=== PATIENT | male | born 1960 | race Caucasian/White ===

== ENCOUNTER 2019-05-17 19:57 | Emergency (ER) | payer MEDICAID ==
[~2019-05-17] VITALS: Ht 175.3 cm; Wt 74.8 kg
[2019-05-17 20:00] VITALS: BP_SYST 112
--- NOTE | 2019-05-17 20:00 | NUR ---
Patient to ER bed 5 for evaluation. Side rails up.
--- NOTE | 2019-05-17 20:10 | NUR ---
True JAMISON on 5150 hold for DTS/DTO. Pt was found at a [employer] making suicidal statements and threatened patrons of the store. Per law enforcement pt stated he wanted to run into traffic. Hx of psychiatric issues, multiple psychiatric admissions and suicide attempts. States SI with no plan, denies HI, AH, or VH. Denies any CP, SOB, N/V/D, no other chief complaints. Reports alcohol use but denies any other drug use at this time. Will continue to monitor.
--- NOTE | 2019-05-17 20:40 | NUR ---
ER Dr. Coles at bedside examining patient.
[2019-05-17 21:29] LABS: BASOPHILS % (AUTO) 0.8 % (0.0-2.0); EOSINOPHILS # (AUTO) 0.3 K/uL (0.0-0.4); EOSINOPHILS % (AUTO) 4.9 % (0.0-4.0); HEMATOCRIT 35.8 % (36-54); HEMOGLOBIN 12.3 g/dL (14.0-18.0); LYMPHOCYTES # (AUTO) 1.4 K/uL (1.0-5.5); LYMPHOCYTES % (AUTO) 25.8 % (20.5-51.5); MEAN CORPUSCULAR HEMOGLOBIN 30 pg (27-31); MEAN CORPUSCULAR HGB CONC 34 % (32-36); MEAN CORPUSCULAR VOLUME 86 fL (79.0-98.0); MONOCYTES # (AUTO) 0.5 K/uL (0.0-1.0); MONOCYTES % (AUTO) 9.4 % (1.7-9.3); NEUTROPHILS # (AUTO) 3.1 K/uL (1.8-7.7); NEUTROPHILS % (AUTO) 59.1 % (40.0-70.0); PLATELET COUNT (AUTO) 173 K/uL (130-430); RED BLOOD CELL COUNT(AUTO) 4.15 MIL/uL (4.2-6.2); RED CELL DISTRIBUTION WIDTH 14.1 % (9.0-15.0); WHITE BLOOD COUNT (AUTO) 5.3 K/uL (4.8-10.8)
[2019-05-17 21:43] LABS: ANION GAP 11 (5-15); CALCIUM 8.5 mg/dL (8.4-11.0); CHLORIDE 108 mmol/L (98-107); CREATININE 0.92 mg/dL (0.55-1.30); GLUCOSE 85 mg/dL (70-99); POTASSIUM 3.7 mmol/L (3.5-5.1); SODIUM SERUM 145 mmol/L (136-145); UREA NITROGEN, BLOOD 22 mg/dL (8-21)
[2019-05-17 21:46] LABS: GFR AFRICAN AMERICAN 109 mL/min (>90)
[2019-05-17 21:49] LABS: ACETAMINOPHEN < 1 ug/mL (1-30); ALANINE AMINOTRANSFERASE 83 U/L (12-78); ALBUMIN 3.6 g/dL (3.4-4.8); ALCOHOL, BLOOD 47 mg/dL (<10); ASPARTATE AMINOTRANSFERASE 86 U/L (10-37); TOTAL BILIRUBIN 0.5 mg/dL (0.0-1.0)
--- NOTE | 2019-05-18 00:16 | NUR ---
Pt is sleeping in bed, no acute distress noted at this time. Will continue to monitor.
[2019-05-18 00:58] LABS: BILIRUBIN,URINE NEGATIVE (NEGATIVE); BLOOD, URINE NEGATIVE (NEGATIVE); CLARITY/URINE CLEAR (CLEAR); COLOR,URINE YELLOW (YELLOW); GLUCOSE,URINE NEGATIVE (NEGATIVE); KETONES,URINE NEGATIVE (NEGATIVE); LEUKOCYTE ESTERASE ,URINE NEGATIVE (NEGATIVE); NITRITE, URINE NEGATIVE (NEGATIVE); PH,URINE 5.5 (5.0-8.0); PROTEIN URINE NEGATIVE (NEGATIVE)
[2019-05-18 01:12] LABS: BARBITURATE, URINE NEGATIVE (NEG <=200); BENZODIAZEPINE, URINE NEGATIVE (NEG <=150); CANNABINOID, URINE POSITIVE (NEG <=50); COCAINE, URINE NEGATIVE (NEG <=150); METHAMPHETAMINES SCREEN,URINE POSITIVE (NEG <=500); OPIATE, URINE NEGATIVE (NEG <=100); PHENCYCLIDINE SCREEN,URINE NEGATIVE (NEG <=25); UR TRICYCLIC ANTIDEPRESSANTS NEGATIVE (NEG <=300); URINE AMPHETAMINE POSITIVE (NEG <=500); URINE METHADONE NEGATIVE (NEG <=200); URINE OXYCODONE SCREEN NEGATIVE (NEG <=100); URINE PROPOXYPHENE SCREEN NEGATIVE (NEG <=300)
--- NOTE | 2019-05-18 01:42 | NUR ---
Pt is sleeping in bed, no acute distress noted at this time.
--- NOTE | 2019-05-18 02:44 | NUR ---
Pt is sleeping at this time. No signs of self harm at this time.
--- NOTE | 2019-05-18 03:22 | NUR ---
Pt is resting in bed, cooperative at this time. Will continue to monitor.
--- NOTE | 2019-05-18 04:51 | NUR ---
Pt is sleeping in bed, will continue to monitor.
--- NOTE | 2019-05-18 05:45 | NUR ---
Pt is sleeping in bed, no acute distress noted at this time
--- NOTE | 2019-05-18 06:45 | NUR ---
Pt is resting comfortably in bed, no acute distress noted at this time. Will continue to monitor.
--- NOTE | 2019-05-18 07:10 | NUR ---
Pt is resting comfortable in bed, report has been given to Casimiro YEE for continuation of care.
--- NOTE | 2019-05-18 07:39 | NUR ---
Breakfast tray provided.
--- NOTE | 2019-05-18 07:52 | NUR ---
Patient ambulated to restroom.
--- NOTE | 2019-05-18 07:58 | NUR ---
Patient returned to [facility].
--- NOTE | 2019-05-18 09:00 | NUR ---
Patient is sleeping in [facility]. No signs or symptoms of distress noted.
--- NOTE | 2019-05-18 10:02 | NUR ---
PET has arrived to evaluate patient.
--- NOTE | 2019-05-18 10:28 | NUR ---
Elton Meza LCSW from [facility] placed a hold on the patient. Patient father Moshe notified at [phone], he verbalized understanding.
--- NOTE | 2019-05-18 11:18 | NUR ---
PLACEMENT NOTE FAXED PLACEMENT PAPERWORK TO FOLLOWING FACILITES: [facility]
--- NOTE | 2019-05-18 11:53 | NUR ---
safety lunch tray provided at pt bedside.
--- NOTE | 2019-05-18 12:00 | NUR ---
Spoke with Zana Selby from [facility] regarding placement.
--- NOTE | 2019-05-18 12:10 | NUR ---
Spoke with Danya, [facility], regarding pt condition. Per Danya, [facility] will be accepting pt at [facility]. RN to RN report to be called at 13:00. . Dr. Boss is accepting physician.
--- NOTE | 2019-05-18 12:23 | NUR ---
TRANSFER NOTE [facility] ACCEPTING: DR. MAYBERRY REPORT: [phone] (REQUESTED TO CALL REPORT @1300) BLS ETA 1300
--- NOTE | 2019-05-18 12:49 | NUR ---
Patient to be transferred to [facility]. Is being transferred due to higher level of care. Receiving facility has accepting physician and available space. ER physician has signed transfer form. Patient or responsible democrat has agreed to transfer and signed form. Patient belongings inventoried and will be sent with patient. Copy of nursing notes, lab reports, EKG, Physicians Orders and X-rays to be sent with patient. Report called to Yokasta at receiving facility. Receiving physician is Dr. Francisco. [facility] ambulance service has been called for transfer. ETA is 1300.
[2019-05-18 13:03] VITALS: BP_SYST 162
--- NOTE | 2019-05-18 13:03 | NUR ---
[facility] on site to transfer patient.
== END 2019-05-18 13:03 ==
LOC: SED 19:57
DX: R45.851 Suicidal ideations (principal); R45.850 Homicidal ideations; F17.200 Nicotine dependence, unspecified, uncomplicated
CPT/HCPCS: 36415; 80053; 80307; 81003; 84484; 85025; 93005; 99285; G0480; G0481; G0482